=== PATIENT | female | born 1950 | race Caucasian/White ===

== ENCOUNTER 2020-01-14 12:58 | Outpatient (CLI) | payer MEDICARE ==
--- NOTE | 2020-01-14 13:59 | RAD ---
TWO VIEWS CHEST: 01/14/20 PROVIDED CLINICAL HISTORY: Asthma exacerbation. FINDINGS: No comparisons. The cardiac and mediastinal silhouette is within normal limits. Lungs appear clear. No pleural fluid or pneumothorax apparent. Surgical clips project over the left chest. Degenerative c hanges are seen involving the thoracic spine. IMPRESSION: No evidence for an acute cardiopulmonary process. POS: [facility]
== END 2020-01-14 12:59 | disposition home or self-care (01) ==
LOC: MADRAD 12:58
PROVIDERS: ATTEND Nurse Practitioner Family
DX: J45.901 Unspecified asthma with (acute) exacerbation (principal)
CPT/HCPCS: 71046